=== PATIENT | female | born 1950 | race Two or more races ===

== ENCOUNTER 2021-12-23 09:45 | Inpatient (IN) | payer OTHER ==
[~2021-12-23] VITALS: Ht 134.6 cm; Wt 58.5 kg
[2021-12-23] MEDS ORDERED: METFOR PO (15:17)
[2021-12-23] MEDS ORDERED: GLIMEPIRIDE2 MG PO (15:18)
[2021-12-23] MEDS ORDERED: LIPITOR40 M1 PO (15:18)
[2021-12-23] MEDS ORDERED: ZESTORETIC 10-1 EACH PO (15:18)
[2021-12-23] MEDS ORDERED: ADULT LOW DOSE81 M1 PO (15:19)
[2021-12-23] MEDS ORDERED: [UNRECOGNIZED DRUG - OTHER] PO (15:20)
[2021-12-23] MEDS ORDERED: STOOL SOFTENER50 MG (15:20)
[2021-12-23] MEDS ORDERED: VITAMIN C100 MG PO (15:21)
[2021-12-23] MEDS ORDERED: VITAMIN E400 UNI5 PO (15:21)
[2021-12-25] MEDS ORDERED: DIPHENHYDR50 MG/1 M1 (11:50)
[2021-12-25] MEDS ORDERED: PROTECT CARDIO1 EAC1 (11:50)
[2021-12-25] MEDS ORDERED: FLUMAZENIL0.1 MG/1 M (11:50)
[2021-12-25] MEDS ORDERED: MIDAZOLAM (11:50)
[2021-12-25] MEDS ORDERED: PANTOPRAZOLE SO40 MG (11:50)
[2021-12-25] MEDS ORDERED: METFORMIN HCL850 M1 (11:51)
[2021-12-26] MEDS ORDERED: TRIPLE ANTIBI28.4 G3 (08:23)
[2021-12-27] MEDS ORDERED: TRAMADOL HCL50 MG PO (14:20)
== END 2021-12-27 17:26 | disposition home or self-care (01) | DRG 331 ==
LOC: O/R 12-25 09:03 → SURG 12-25 09:03 → SURH 12-25 09:45 → SURG 12-25 16:41
PROVIDERS: ADMIT Surgery; ATTEND Surgery
PROC: 0DTN4ZZ Resection of Sigmoid Colon, Percutaneous Endoscopic Approach (ICD-10-PCS; principal; 2021-12-26)
PROC: 0DQP4ZZ Repair Rectum, Percutaneous Endoscopic Approach (ICD-10-PCS; 2021-12-26)
DX: K62.3 Rectal prolapse (principal); K57.30 Diverticulosis of large intestine without perforation or abscess without bleeding; K62.89 Other specified diseases of anus and rectum; R15.9 Full incontinence of feces; K59.09 Other constipation; I10 Essential (primary) hypertension

== ENCOUNTER 2023-05-12 12:52 | Inpatient (IN) | payer OTHER ==
[~2023-05-12] VITALS: Ht 144.8 cm; Wt 58.5 kg
[~2023-05-12 12:52] MED LIST: ADULT LOW DOSE81 M1 PO; DIPHENHYDR50 MG/1 M1; FLUMAZENIL0.1 MG/1 M; GLIMEPIRIDE2 MG PO; LIPITOR40 M1 PO; METFOR PO; METFORMIN HCL850 M1; MIDAZOLAM; PANTOPRAZOLE SO40 MG; PROTECT CARDIO1 EAC1; STOOL SOFTENER50 MG; TRAMADOL HCL50 MG PO; TRIPLE ANTIBI28.4 G3; VITAMIN C100 MG PO; VITAMIN E400 UNI5 PO; ZESTORETIC 10-1 EACH PO; [UNRECOGNIZED DRUG - OTHER] PO
[2023-05-18] MEDS ORDERED: MYRBETRIQ25 MG (11:59)
[2023-05-18] MEDS ORDERED: VITAMIN C500 M1 (11:59)
[2023-05-18] MEDS ORDERED: VITAMIN E180 M1 (11:59)
[2023-05-19] MEDS ORDERED: CIPRO500 MG PO (08:09)
[2023-05-19] MEDS ORDERED: METRONIDAZOLE500 MG PO (08:09)
[2023-05-19] MEDS ORDERED: TRAM1TAB98 PO (08:11)
[2023-05-19] MEDS ORDERED: INTESTINEX680 M1 PO (08:11)
== END 2023-05-19 15:51 | disposition home or self-care (01) | DRG 331 ==
LOC: SURG 05-18 08:26 → O/R 05-18 08:26 → SURH 05-18 11:45 → SURG 05-18 18:05
PROVIDERS: ADMIT Surgery; ATTEND Surgery
PROC: 0DBP7ZZ Excision of Rectum, Via Natural or Artificial Opening (ICD-10-PCS; 2023-05-18)
PROC: 0DUR0JZ Supplement Anal Sphincter with Synthetic Substitute, Open Approach (ICD-10-PCS; 2023-05-18)
PROC: 0JQC0ZZ Repair Pelvic Region Subcutaneous Tissue and Fascia, Open Approach (ICD-10-PCS; principal; 2023-05-18 13:30)
DX: K62.3 Rectal prolapse (principal); N81.5 Vaginal enterocele; Z20.822 Contact with and (suspected) exposure to COVID-19